=== PATIENT | male | born 1975 | race Hispanic/Latino ===

== ENCOUNTER 2023-10-07 09:09 | Day surgery (SDC) | payer OTHER ==
[2023-10-03 10:53] LABS: BASOPHILS # (AUTO) 0.02 K/uL (0.00-0.20); BASOPHILS % (AUTO) 0.2 % (0.0-5.0); EOSINOPHILS # (AUTO) 0.32 K/uL (0.00-0.70); EOSINOPHILS % (AUTO) 3.5 % (0.0-8.0); HEMATOCRIT 48.1 % (42-54); IMMATURE GRANULOCYTE ABSOLUTE 0.07 K/uL (0-1); LYMPHOCYTES # (AUTO) 2.1 K/uL (1.0-4.8); LYMPHOCYTES % (AUTO) 22.5 % (21.0-51.0); MEAN CORPUSCULAR HEMOGLOBIN 25.5 pg (27.0-33.0); MEAN CORPUSCULAR HGB CONC 32.2 g/dL (32.0-36.0); MEAN CORPUSCULAR VOLUME 79.1 fL (79-99); MONOCYTES # (AUTO) 0.7 K/uL (0.1-1.0); MONOCYTES % (AUTO) 7.6 % (3.0-13.0); NEUTROPHILS % (AUTO) 65.4 % (40.0-77.0); PLATELET COUNT (AUTO) 262 K/uL (130-400); RED BLOOD CELL COUNT(AUTO) 6.08 MIL/uL (4.50-6.20); RED CELL DISTRIBUTION WIDTH 14.2 % (11.0-15.5); WHITE BLOOD COUNT (AUTO) 9.2 K/uL (4.8-10.8)
[2023-10-03 11:01] LABS: CREATININE 1.1 mg/dL (0.5-1.5); POTASSIUM 3.7 mmol/L (3.5-5.1)
[2023-10-07] VITALS (17 sets, daily range): BP systolic 104–123; BP diastolic 56–81; PULSE 75–96; RESP 14–18
[~2023-10-07] VITALS: Ht 170.2 cm; Wt 132.3 kg
[~2023-10-07 09:09] MED LIST: [UNRECOGNIZED DRUG - REMARK] PO
[2023-10-07] MEDS ORDERED: CEFAZOLIN SODIUM 1 GM VIAL ONE (12:09)
[2023-10-07] MEDS ORDERED: LACTATED RINGERS 1000ML 1,000 ML IV ONE (12:09)
[2023-10-07] MEDS ORDERED: ONDANSETRON 4MG INJ ONE (14:07)
[2023-10-07] MEDS ORDERED: SUCCINYLCHOLINE CHLORIDE 20 MG/ML 10 ML VIAL ONE (14:07)
[2023-10-07] MEDS ORDERED: GLYCOPYRROLATE 1 MG/5 ML SYRINGE ONE (14:07)
[2023-10-07] MEDS ORDERED: DEXAMETHASONE SOD PHOSPHATE 10MG/ML 1ML VIAL ONE (14:07)
[2023-10-07] MEDS ORDERED: LIDOCAINE PF 100MG/5ML (2%) SYRINGE 5ML ONE (14:07)
[2023-10-07] MEDS ORDERED: PROPOFOL 10 MG/ML 20ML VIAL IV ONE (14:07)
[2023-10-07] MEDS ORDERED: MIDAZOLAM HCL 1 MG/ML 2ML VIAL ONE ×2 (14:07→14:51)
[2023-10-07] MEDS ORDERED: NEOSTIGMINE 5MG/5ML SYR IV ONE (14:08)
[2023-10-07] MEDS ORDERED: ROCURONIUM 10MG/1ML SYR 10 MG/ML ML ONE (14:08)
[2023-10-07] MEDS ORDERED: FENTANYL CITRATE PF 50 MCG/1 ML 2ML VIAL ONE ×3 (14:08→14:29)
[2023-10-07] MEDS ORDERED: FENTANYL CITRATE PF 50 MCG/1 ML 5ML AMP IV ONE ×3 (14:23→16:50)
[2023-10-07] MEDS ORDERED: CEFAZOLIN SODIUM 3 GM VIAL IVPB ONE (14:25)
[2023-10-07] MEDS ORDERED: BUPIVACAINE/PF 0.25% 30ML VIAL IJ ONE (14:26)
[2023-10-07] MEDS ORDERED: KETOROLAC 30MG VIAL (30MG/ML) ONE (14:31)
[2023-10-07] MEDS ORDERED: MEPERIDINE-PF 25 MG/ML SYG ONE (15:21)
== END 2023-10-07 17:25 | disposition home or self-care (01) ==
LOC: DAH 09:09
PROVIDERS: ATTEND Surgery
DX: K42.0 Umbilical hernia with obstruction, without gangrene (principal); Z83.3 Family history of diabetes mellitus; Z82.5 Family history of asthma and other chronic lower respiratory diseases
CPT/HCPCS: 36415; 80048; 85025; 49594; A6260; A4663; J7030; J7120 ×2; A4452; C1781; J0690 ×2; J3010 ×5; J3490; J1100; J2710; J0330; J0665; J2001; J2250 ×2; J2704; J2405; J1885; J2175; A4930 ×2; A4215; A4223; A4222; A4221; A4606